=== PATIENT | male | born 1965 | race Caucasian/White ===

== ENCOUNTER 2020-03-03 00:59 | Emergency (ER) | payer MEDICAID, OTHER ==
[~2020-03-03] VITALS: Ht 185.4 cm; Wt 77.3 kg
[~2020-03-03 00:59] MED LIST: NO HOME MEDS
[2020-03-03 01:00] VITALS: BP 145/94
[2020-03-03] MEDS ORDERED: benzonatate 100mg capsule PO ONE (01:10)
[2020-03-03] MEDS ORDERED: ibuprofen tablet 400 MG TABLET PO ONE (01:10)
== END 2020-03-03 01:19 | disposition home or self-care (01) ==
LOC: ER 00:59
DX: J06.9 Acute upper respiratory infection, unspecified (principal); G89.29 Other chronic pain; F32.9 Major depressive disorder, single episode, unspecified; F20.9 Schizophrenia, unspecified; F15.90 Other stimulant use, unspecified, uncomplicated; Z72.89 Other problems related to lifestyle; Z98.890 Other specified postprocedural states; Z86.14 Personal history of Methicillin resistant Staphylococcus aureus infection; Z59.0 Homelessness; Z56.0 Unemployment, unspecified
CPT/HCPCS: 99283

== ENCOUNTER 2020-05-27 12:23 | Emergency (ER) | payer MEDICAID, OTHER ==
[~2020-05-27] VITALS: Ht 185.4 cm; Wt 79.5 kg
[2020-05-27 12:27] VITALS: BP 137/77
--- NOTE | 2020-05-27 12:42 | NUR ---
Report given to HARRIS Yousif dispatched to ED to collect report from patient.
[2020-05-27] MEDS ORDERED: cephalexin 250mg capsule PO ONE (12:45)
[2020-05-27] MEDS ORDERED: TETanus/Pertussis (Acell)/Diphther VAC/PF (Tdap-Adult) 0.5ml syringe IMVAC ONE (12:45)
[2020-05-27] MEDS ORDERED: CEPH-572 PO (13:12)
== END 2020-05-27 13:23 | disposition home or self-care (01) ==
LOC: ER 12:24
DX: Z18.9 Retained foreign body fragments, unspecified material (principal); M79.5 Residual foreign body in soft tissue; F20.9 Schizophrenia, unspecified; F32.9 Major depressive disorder, single episode, unspecified; F15.90 Other stimulant use, unspecified, uncomplicated; F10.20 Alcohol dependence, uncomplicated; Z86.14 Personal history of Methicillin resistant Staphylococcus aureus infection; Z98.890 Other specified postprocedural states; Z79.899 Other long term (current) drug therapy; Y90.0 Blood alcohol level of less than 20 mg/100 ml; X95.01XA Assault by airgun discharge, initial encounter; Y93.89 Activity, other specified; Y92.89 Other specified places as the place of occurrence of the external cause; Y99.8 Other external cause status
CPT/HCPCS: 70250; 90471; 90715; 99284

== ENCOUNTER 2021-06-17 08:25 | Emergency (ER) | payer MEDICAID, OTHER ==
[~2021-06-17] VITALS: Ht 185.4 cm; Wt 77.9 kg
[~2021-06-17 08:25] MED LIST changes: +LIDOcaine 1% 30ml preserv. free vial ONE
[2021-06-17 08:29] VITALS: BP 117/81
[2021-06-17] MEDS ORDERED: LIDOcaine 1% 30ml preserv. free vial IJ ONE (08:55)
[2021-06-17] MEDS ORDERED: SULF1TAB45 PO (09:34)
[2021-06-17] MEDS ORDERED: HYDR-3965 PO (09:42)
== END 2021-06-17 09:48 | disposition home or self-care (01) ==
LOC: ER 08:25
DX: L02.413 Cutaneous abscess of right upper limb (principal); L03.113 Cellulitis of right upper limb; R22.32 Localized swelling, mass and lump, left upper limb; G89.29 Other chronic pain; F15.90 Other stimulant use, unspecified, uncomplicated; F17.200 Nicotine dependence, unspecified, uncomplicated; Z86.14 Personal history of Methicillin resistant Staphylococcus aureus infection; Z72.89 Other problems related to lifestyle; Z59.0 Homelessness; Z98.890 Other specified postprocedural states; Z79.899 Other long term (current) drug therapy
CPT/HCPCS: 10060; 99283; J2001

== ENCOUNTER 2021-07-17 09:12 | Emergency (ER) | payer MEDICAID, OTHER ==
[~2021-07-17] VITALS: Ht 185.4 cm; Wt 81.8 kg
[~2021-07-17 09:12] MED LIST changes: +HYDR-3965 PO; -LIDOcaine 1% 30ml preserv. free vial ONE
[2021-07-17] MEDS ORDERED: LIDOcaine 1% W/epiNEPHrine 1:200,000 10ml vial IJ ONE (09:20)
[2021-07-17] MEDS ORDERED: SULF1TAB45 PO (09:35)
[2021-07-17] MEDS ORDERED: CEPH250T PO (09:35)
[2021-07-17 09:54] VITALS: BP 141/94
== END 2021-07-17 09:56 | disposition home or self-care (01) ==
LOC: ER 09:13
DX: L02.415 Cutaneous abscess of right lower limb (principal); G89.29 Other chronic pain; F32.9 Major depressive disorder, single episode, unspecified; F20.9 Schizophrenia, unspecified; F15.90 Other stimulant use, unspecified, uncomplicated; Z86.14 Personal history of Methicillin resistant Staphylococcus aureus infection; Z98.890 Other specified postprocedural states; Z72.89 Other problems related to lifestyle; Z59.0 Homelessness; Z56.0 Unemployment, unspecified; Z79.2 Long term (current) use of antibiotics
CPT/HCPCS: 10061; 99284

== ENCOUNTER 2024-03-08 16:12 | Emergency (ER) | payer MEDICAID, OTHER ==
[~2024-03-08] VITALS: Ht 185.4 cm; Wt 77.3 kg
[~2024-03-08 16:12] MED LIST changes: -HYDR-3965 PO; +IBUP-1985 PO
[2024-03-08 16:35] VITALS: BP 126/56; PULSE 57; RESP 16; TEMP 98.5; O2SAT 92
[2024-03-08] MEDS ORDERED: IBUP-1986 PO (17:48)
[2024-03-08] MEDS ORDERED: BENZ-38 PO (17:48)
[2024-03-08] MEDS ORDERED: AZIT250T83 PO (17:48)
[2024-03-08] MEDS: CefTRIAXone 1000mg IM Kit (w/lidocaine diluent) IM ONE (17:50)
== END 2024-03-08 18:17 | disposition home or self-care (01) ==
LOC: ER 16:13
DX: J18.9 Pneumonia, unspecified organism (principal); Z20.822 Contact with and (suspected) exposure to COVID-19; F15.90 Other stimulant use, unspecified, uncomplicated; Z79.1 Long term (current) use of non-steroidal anti-inflammatories (NSAID)
CPT/HCPCS: 36415; 71045; 87502; 87503; 87811; 96372; 99284; J0696

== ENCOUNTER 2024-10-13 21:58 | Emergency (ER) | payer SELFPAY ==
[~2024-10-13] VITALS: Ht 185.4 cm; Wt 75.0 kg
[~2024-10-13 21:58] MED LIST changes: +IBUP-1986 PO
[2024-10-13 21:59] VITALS: BP 120/78; PULSE 138; RESP 19; TEMP 97.9; O2SAT 94
[2024-10-14] MEDS ORDERED: CLIN-214 PO (07:11)
== END 2024-10-13 23:30 | disposition left against medical advice (07) ==
LOC: ER 21:58
DX: R09.81 Nasal congestion (principal); R05.9 Cough, unspecified; Z53.21 Procedure and treatment not carried out due to patient leaving prior to being seen by health care provider

== ENCOUNTER 2024-10-14 05:46 | Emergency (ER) | payer MEDICAID ==
[~2024-10-14] VITALS: Ht 185.4 cm; Wt 75.0 kg
[2024-10-14 05:50] VITALS: BP 122/76; PULSE 86; TEMP 98.4; O2SAT 98
[2024-10-14] MEDS: codeine/proMETHazine 5ml UD syrup PO ONE (07:01)
[2024-10-14 07:11] VITALS: RESP 16
[2024-10-14] MEDS ORDERED: CLIN-214 PO (07:11)
[2024-10-14] MEDS: ketorolac trometh 15mg/ml vial 15 MG/ML ML IM ONE (07:11)
[2024-10-14] MEDS: guaiFENesin 200mg/20mg codeine phos 10ml UD oral syrup PO ONE (07:13)
== END 2024-10-14 07:27 | disposition home or self-care (01) ==
LOC: ER 05:47
DX: J06.9 Acute upper respiratory infection, unspecified (principal); K08.89 Other specified disorders of teeth and supporting structures; G89.29 Other chronic pain; M54.9 Dorsalgia, unspecified; F20.9 Schizophrenia, unspecified; F32.A Depression, unspecified; F15.90 Other stimulant use, unspecified, uncomplicated; F10.90 Alcohol use, unspecified, uncomplicated; Z59.00 Homelessness unspecified; Z56.0 Unemployment, unspecified; Z98.890 Other specified postprocedural states; Z79.1 Long term (current) use of non-steroidal anti-inflammatories (NSAID)
CPT/HCPCS: 71045; 96372; 99283; J1885